=== PATIENT | male | born 1960 | race African-American/Black ===

== ENCOUNTER 2017-02-05 20:49 | Inpatient (IN) | payer SELFPAY ==
[2017-02-05] MEDS ORDERED: Water For Inject, Bacteriostat 30 ML ONE (21:10)
[2017-02-05] MEDS ORDERED: methylPREDNISolone Sod Succ/PF 125 MG/2 ML VIAL ONE (21:10)
[2017-02-05] MEDS ORDERED: Azithromycin 500 MG VIAL ONE (21:40)
[2017-02-05] MEDS ORDERED: Ondansetron ODT 4 MG TAB SL PRN (22:53)
[2017-02-05] MEDS ORDERED: Ondansetron HCl/PF 4 MG/2 ML Vial IVP PRN (22:53)
[2017-02-05 23:10] VITALS: BMI 23.5
[2017-02-06] MEDS ORDERED: Acetaminophen 500 MG TAB PO PRN (01:24)
[2017-02-06] MEDS ORDERED: cloNIDine HCl 0.1 MG TAB PO PRN (01:24)
[2017-02-06] MEDS ORDERED: Benzonatate 100 MG CAP PO PRN (01:24)
[2017-02-06] MEDS ORDERED: Ondansetron ODT 4 MG TAB PO PRN (01:24)
[2017-02-06] MEDS ORDERED: Ondansetron HCl/PF 4 MG/2 ML Vial IVP PRN (01:24)
[2017-02-06] MEDS: Guaifenesin DM 100-10/5 ML UDCUP PO PRN ×2 (02:14→17:57)
--- NOTE | 2017-02-06 03:01 | HP ---
DATE OF ADMISSION: 02/05/2017 PRIMARY CARE PHYSICIAN: Daphnie Hsu. CHIEF COMPLAINT: Cough and fever. HISTORY OF PRESENT ILLNESS: This is a 56-year-old -[place] male, who presented to [facility] in transfer from [place] [facility] after complaints of increased cough, congestion, chest pain and shortness of breath. The patient states that his symptoms have la sted over the last several days with increasing cough with associated bilateral chest pain. The pat ient states that the cough is mainly nonproductive, but has noted subjective fever. The patient sta marichuy the cough has persisted and worsened, and is not amenable to [id number] remedies. The pat ient denied any recent trauma or injury or known sick contacts. The patient also admits to [facility] ed nausea and vomiting with the coughing episodes. Patient does admit to smoking up to a pack of ci garettes daily. The patient presented to [facility] in [place] undergo ing general evaluation including chest imaging showing a left lower lobe infiltrate with associated white blood cell count of 20.6. The patient was treated for community-acquired pneumonia with IV az ithromycin as well as bronchodilator therapy with DuoNebs and Solu-Medrol. Patient also received 2 liters of normal saline and was transferred to [facility] for further evaluat ion. PAST MEDICAL HISTORY: 1. Tobacco abuse. 2. Polysubstance abuse including marijuana and cocaine. 3. History of pulmonary contusion with a small pneumothorax status post blunt chest trauma after fa ll. 4. Status post right wrist fracture with open reduction internal fixation. 5. Status post medial wall, right orbital fracture status post fall. 6. Alcohol use. PAST SURGICAL HISTORY: 1. Status post open reduction internal fixation of right distal radius fracture. 2. Status post back surgery. CURRENT MEDICATIONS: None. ALLERGIES: No known drug allergies. FAMILY HISTORY: Positive for hypertension. SOCIAL HISTORY: Patient admits to the use of cocaine and marijuana. The patient smokes up to a pac k of cigarettes daily. Positive alcohol use, 2-3 drinks per day. Resides in [place], [place]. Cur rently, unemployed. REVIEW OF SYSTEMS: The following complete review of systems was negative, unless otherwise mentione d in the HPI or below: Constitutional: Weight loss or gain, ability to conduct usual activities. Skin: Rash, itching. Eyes: Double vision, pain. ENT/Mouth: Nose bleeding, neck stiffness, pain, tenderness. Cardiovascular: Palpitations, dyspnea on exertion, orthopnea. Respiratory: Shortnes s of breath, wheezing, cough, hemoptysis, fever or night sweats. Gastrointestinal: Poor appetite, abdominal pain, heartburn, nausea, vomiting, constipation, or diarrhea. Genitourinary: Urgency, fr equency, dysuria, nocturia. Musculoskeletal: Pain, swelling. Neurologic/Psychiatric: Anxiety, de pression. Allergy/Immunologic: Skin rash, bleeding tendency. PHYSICAL EXAMINATION: VITAL SIGNS: On admission, blood pressure 118/70, pulse 98, respiratory rate 20, temperature 98.7 degrees Fahrenheit, O2 saturation 98% on 2 liters per minute by nasal cannula. GENERAL APPEARANCE: This is a 56-year-old -Dutch male, alert and oriented x3, pleasant, c onversant, in no acute distress. HEENT: Pupils are equal, round, and reactive to light and accommodation. Extraocular muscles are i ntact. No scleral icterus, no conjunctival injection. Nares patent. OP is clear. Teeth in fair r epair. NECK: Supple, no cervical adenopathy, no thyromegaly, no carotid bruits, no JVD appreciated. Cervi robert spine with full active and passive range of motion. CHEST: Diminished breath sounds in the bases bilaterally. CARDIOVASCULAR: S1, S2, without noted murmur. ABDOMEN: Flat, soft, nontender, nondistended. Bowel sounds are positive in all four quadrants. Th ere is no hepatosplenomegaly, no abdominal bruits, no rebound or guarding appreciated. EXTREMITIES: Warm and dry with fair turgor. No clubbing, cyanosis, or asymmetric edema appreciated . Pulses palpable distally at the dorsalis pedis, posterior tibial, and popliteal arteries bilatera lly. Capillary refill less than 2 seconds. NEUROLOGIC: Cranial nerves II through XII are grossly intact. No focal or lateralizing signs appre ciated. EKG dated 02/05/2017 by my interpretation, shows a sinus mechanism with rates in the 90s. Normal R- wave progression noted in the precordial leads. Right axis deviation. No acute ST-T wave changes a ppreciated. LABORATORY DATA: Unavailable. CT of the chest per verbal report showed left lower lobe infiltrate. ASSESSMENT AND PLAN: 1. Community-acquired pneumonia with left lower lobe involvement likely gram-positive cocci. We wi ll continue Levaquin 750 mg IV q.24 hours. Continue DuoNebs 3 mL nebulized q.4 hours, antitussive a gents with Tessalon Perles and Robitussin-DM. Continue oxygen supplementation to maintain O2 satura tions greater than or equal to 90%. Pneumovax prior to discharge. 2. Tobacco abuse. We will offer smoking cessation resources prior to discharge. Consider nicotine patch. 3. Polysubstance use. Continue supportive measures. We will offer resources for drug rehabilitati on on discharge. 4. Prophylaxis. Sequential compression devices while in bed. Pepcid 20 mg p.o. b.i.d. Pneumovax prior to discharge. 5. Code status is FULL. Surrogate medical decision maker is the patient's mother.
[2017-02-06 05:24] LABS: Band 10 % (5-11); Hematocrit 44.9 % (42.0-52.0); Mean Platelet Volume 9.2 fL (7.4-10.4); Neutrophil 83 % (42-75); Red Blood Cell (RBC) Count 4.68 mill/uL (4.70-6.10); White Blood Cell (WBC) Count 19.8 thou/uL (4.8-10.8)
[2017-02-06 05:31] LABS: Anion Gap 12 mmol/L (10-20); BUN (Urea Nitrogen) 18 mg/dL (8.4-25.7); Calc. Creatinine Clearance 65 mL/min (70-130); Carbon Dioxide 25 mmol/L (22-29); Chloride 99 mmol/L (98-107); Estimated GFR-MDRD 74
[2017-02-06] MEDS: Famotidine 20 MG TAB PO SCH ×2 (08:43→20:05)
--- NOTE | 2017-02-06 11:04 | PDOC.PN ---
- Subjective Encounter Start Date: 02/06/17 Encounter Start Time: 11:01 Mr. Quiroz is feeling a little better. He stil has some cough, and some chest pain with coughing. He also notes some dyspnea. - Objective Resuscitation Status: Resuscitation Status FULL:Full Resuscitation MAR Reviewed: Yes Vital Signs & Weight: Vital Signs (12 hours) Temp Pulse Resp BP Pulse Ox 02/06/17 07:55 98.2 F 68 18 118/74 97 02/06/17 07:40 98.2 F 75 16 97 02/06/17 07:34 99 02/06/17 07:32 75 16 99 02/06/17 04:00 97.6 F 69 16 127/66 93 L 02/06/17 02:47 71 16 97 02/06/17 01:24 97 Weight Weight 150 lb 3.2 oz I&O: 02/05/17 02/06/17 02/07/17 06:59 06:59 06:59 Intake Total 390 240 Balance 390 240 Result Diagrams: 02/06/17 04:06 02/06/17 04:06 Phys Exam - Physical Examination HEENT: PERRLA Respiratory: no wheezing, no rales, no rhonchi, clear to auscultation bilateral Cardiovascular: RRR, no significant murmur, no rub Gastrointestinal: soft, non-tender, positive bowel sounds Musculoskeletal: no edema Dx/Plan (1) Community acquired pneumonia Code(s): J18.9 - PNEUMONIA, UNSPECIFIED ORGANISM Status: Acute (2) Tobacco abuse Code(s): Z72.0 - TOBACCO USE Status: Acute - Plan * Pneumonia- will continue Levaquin * Tobacco abuse- discussed smoking cessation in detail * Will discontinue Telemetry * Likely home tomorrow, recommend Outpatient PFT's and routine health maintenance.
[2017-02-07] MEDS: Phenergan/Codeine 10-6.25mg/5ml UDCUP PO PRN (01:15)
[2017-02-07] MEDS: Famotidine 20 MG TAB PO SCH ×2 (08:00→22:32)
[2017-02-07 08:35] LABS: #Basophils 0.1 thou/uL (0.0-0.2); #Lymphocytes 2.2 thou/uL (1.20-3.40); #Monocytes 1.2 thou/uL (0.11-0.59); #Neutrophils 16.4 thou/uL (1.40-6.50); %Basophils 0.5 % (0.0-1.0); %Eosinophils 0.1 % (0.0-10.0); %Lymphocytes 10.9 % (21.0-51.0); %Monocytes 5.8 % (0.0-10.0); Hematocrit 43.5 % (42.0-52.0); Mean Platelet Volume 7.8 fL (7.4-10.4); Red Blood Cell (RBC) Count 4.52 mill/uL (4.70-6.10); White Blood Cell (WBC) Count 19.9 thou/uL (4.8-10.8)
[2017-02-07 08:59] LABS: Anion Gap 14 mmol/L (10-20); BUN (Urea Nitrogen) 17 mg/dL (8.4-25.7); Calc. Creatinine Clearance 70 mL/min (70-130); Calcium 8.9 mg/dL (7.8-10.44); Carbon Dioxide 24 mmol/L (22-29); Chloride 103 mmol/L (98-107); Estimated GFR-MDRD 80
--- NOTE | 2017-02-07 12:03 | RAD ---
CHEST 2 VIEWS: Date: 02/07/17 COMPARISON: 03/30/11. HISTORY: Evaluate for left lower lobe pneumonia. FINDINGS: There is an area of new asymmetric patchy opacity in the left perihilar region/mid left lung zone. T he lungs are hyperinflated and there are increased linear interstitial densities, evidence of underl esther emphysematous change. IMPRESSION: Chronic interstitial opacity with pulmonary hyperinflation. Question history of COPD. Superimposed h azy density is noted in the left perihilar region and the mid left lung zone suggesting infectious p neumonitis or aspiration. Follow-up following treatment advised to document resolution. POS: FELIBERTO
--- NOTE | 2017-02-07 13:30 | PDOC.PN ---
- Subjective Encounter Start Date: 02/07/17 Encounter Start Time: 10:20 Subjective: has dry cough and unable to bring up sputum -: no sob - Objective Resuscitation Status: Resuscitation Status FULL:Full Resuscitation MAR Reviewed: Yes Vital Signs & Weight: Vital Signs (12 hours) Temp Pulse Resp BP Pulse Ox 02/07/17 10:59 89 16 98 02/07/17 08:00 98.7 F 89 16 97 02/07/17 07:50 98.7 F 89 16 129/77 98 02/07/17 06:42 87 16 97 02/07/17 05:15 98.2 F 87 16 114/67 97 02/07/17 02:18 77 16 98 02/07/17 01:35 98.6 F 80 18 118/70 96 Weight Weight 150 lb 3.2 oz I&O: 02/06/17 02/07/17 02/08/17 06:59 06:59 06:59 Intake Total 390 960 480 Output Total 350 Balance 390 610 480 Result Diagrams: 02/07/17 08:24 02/07/17 08:24 Phys Exam - Physical Examination HEENT: PERRLA, moist MMs Neck: no JVD, supple Respiratory: no wheezing, no rales rhonchi++ Cardiovascular: RRR, no significant murmur Gastrointestinal: soft, non-tender, positive bowel sounds Musculoskeletal: no edema, pulses present Neurological: non-focal, moves all 4 limbs Psychiatric: A&O x 3 Dx/Plan (1) Community acquired pneumonia Code(s): J18.9 - PNEUMONIA, UNSPECIFIED ORGANISM Status: Acute Qualifiers: Laterality: left (2) COPD exacerbation Code(s): J44.1 - CHRONIC OBSTRUCTIVE PULMONARY DISEASE W (ACUTE) EXACERBATION Status: Acute (3) Substance abuse Code(s): F19.10 - OTHER PSYCHOACTIVE SUBSTANCE ABUSE, UNCOMPLICATED Status: Acute (4) Tobacco abuse Code(s): Z72.0 - TOBACCO USE Status: Acute (5) DM type 2 (diabetes mellitus, type 2) Status: Acute Qualifiers: Diabetes mellitus complication status: with unspecified complications Diabetes mellitus intermediate insulin use: without intermediate use Qualified Code( s): E11.8 - Type 2 diabetes mellitus with unspecified complications Comment: new onset - Plan is on levaquin, wbc still around 19 -: gentle iv hydration -: duonebs, small dose of steroids -: diabetic education, will cover with mild scale -: dc plan when wbc starts to trend down * . Review of Systems - Medications/Allergies Allergies/Adverse Reactions: Allergies Allergy/AdvReac Type Severity Reaction Status Date / Time No Known Drug Allergies Allergy Verified 02/05/17 23:07 Medications: Current Medications Acetaminophen (Tylenol) 1,000 mg PO Q6H PRN PRN Reason: Headache/Fever or Mild Pain Albuterol/Ipratropium (Duoneb) 3 ml NEB [id number] [facility] Last Admin: 02/07/17 10:59 Dose: 3 ml Benzonatate (Tessalon) 200 mg PO Q6H PRN PRN Reason: Cough Last Admin: 02/06/17 08:48 Dose: 200 mg Clonidine HCl (Catapres) 0.1 mg PO Q4H PRN PRN Reason: Systolic BP > 180 Famotidine (Pepcid) 20 mg PO BID [facility] Last Admin: 02/07/17 08:00 Dose: 20 mg Guaifenesin/Dextromethorphan (Robitussin Dm) 15 ml PO Q4H PRN PRN Reason: Cough Last Admin: 02/06/17 17:57 Dose: 15 ml Hydralazine HCl (Apresoline) 10 mg SLOW IVP Q4H PRN PRN Reason: Systolic BP > 180 Levofloxacin 750 mg/ Device 150 mls @ 100 mls/hr IVPB Q24HR [facility] Last Admin: 02/07/17 01:06 Dose: 150 mls Ondansetron HCl (Zofran Odt) 4 mg PO Q6H PRN PRN Reason: Nausea/Vomiting Ondansetron HCl (Zofran) 4 mg IVP Q6H PRN PRN Reason: Nausea/Vomiting Promethazine HCl/Codeine (Phenergan/Codeine Syrup) 5 ml PO Q4H PRN PRN Reason: Cough Last Admin: 02/07/17 01:15 Dose: 5 ml
[2017-02-07] MEDS: Sodium Chloride 0.9% 1,000 ML IV SCH (13:58)
[2017-02-07] MEDS: guaiFENesin ER 600 MG TAB PO SCH (22:32)
[2017-02-08] MEDS: Sodium Chloride 0.9% 1,000 ML IV SCH ×3 (02:05→21:16)
[2017-02-08 06:20] LABS: Anion Gap 11 mmol/L (10-20); BUN (Urea Nitrogen) 14 mg/dL (8.4-25.7); Calc. Creatinine Clearance 85 mL/min (70-130); Calcium 9.2 mg/dL (7.8-10.44); Carbon Dioxide 26 mmol/L (22-29); Chloride 103 mmol/L (98-107); Estimated GFR-MDRD Greater than 90
[2017-02-08 06:45] LABS: Band 1 % (5-11); Hematocrit 45.5 % (42.0-52.0); Mean Platelet Volume 8.4 fL (7.4-10.4); Neutrophil 85 % (42-75); Red Blood Cell (RBC) Count 4.73 mill/uL (4.70-6.10); White Blood Cell (WBC) Count 12.6 thou/uL (4.8-10.8)
[2017-02-08] MEDS: guaiFENesin ER 600 MG TAB PO SCH ×2 (08:03→21:13)
[2017-02-08] MEDS: Famotidine 20 MG TAB PO SCH ×2 (08:03→21:13)
--- NOTE | 2017-02-08 11:31 | PDOC.PN ---
- Subjective Encounter Start Date: 02/08/17 Encounter Start Time: 10:40 Subjective: is able to bring up his sputum now -: no sob - Objective Resuscitation Status: Resuscitation Status FULL:Full Resuscitation MAR Reviewed: Yes Vital Signs & Weight: Vital Signs (12 hours) Temp Pulse Resp BP Pulse Ox 02/08/17 10:42 98 16 97 02/08/17 08:00 98.3 F 95 22 H 126/66 96 02/08/17 06:31 85 16 96 02/08/17 02:50 88 16 95 Weight Weight 150 lb 3.2 oz I&O: 02/07/17 02/08/17 02/09/17 06:59 06:59 06:59 Intake Total 960 720 360 Output Total 350 Balance 610 720 360 Result Diagrams: 02/08/17 04:28 02/08/17 04:28 Phys Exam - Physical Examination HEENT: PERRLA, moist MMs Neck: no JVD, supple Respiratory: no wheezing, no rales rhonchi+ Cardiovascular: RRR, no significant murmur Gastrointestinal: soft, non-tender, positive bowel sounds Musculoskeletal: no edema, pulses present Neurological: non-focal, moves all 4 limbs Psychiatric: A&O x 3 Dx/Plan (1) Community acquired pneumonia Code(s): J18.9 - PNEUMONIA, UNSPECIFIED ORGANISM Status: Acute Qualifiers: Laterality: left (2) COPD exacerbation Code(s): J44.1 - CHRONIC OBSTRUCTIVE PULMONARY DISEASE W (ACUTE) EXACERBATION Status: Acute (3) Substance abuse Code(s): F19.10 - OTHER PSYCHOACTIVE SUBSTANCE ABUSE, UNCOMPLICATED Status: Acute (4) Tobacco abuse Code(s): Z72.0 - TOBACCO USE Status: Acute (5) DM type 2 (diabetes mellitus, type 2) Status: Acute Qualifiers: Diabetes mellitus complication status: with unspecified complications Diabetes mellitus adjunct faculty for medical terminology insulin use: without shelter use Qualified Code( s): E11.8 - Type 2 diabetes mellitus with unspecified complications Comment: new onset - Plan wbc down to 12 from 19 -: dc plan in am on oral levaq and alb inhaler -: steroids can be dc'd on discharge -: counselled reg substance abuse and smoking cessation -: new onset dm/glucose intolerance to steroids for diet control now * . Review of Systems - Medications/Allergies Allergies/Adverse Reactions: Allergies Allergy/AdvReac Type Severity Reaction Status Date / Time No Known Drug Allergies Allergy Verified 02/05/17 23:07 Medications: Current Medications Acetaminophen (Tylenol) 1,000 mg PO Q6H PRN PRN Reason: Headache/Fever or Mild Pain Albuterol/Ipratropium (Duoneb) 3 ml NEB [id number] [facility] Last Admin: 02/08/17 10:42 Dose: 3 ml Benzonatate (Tessalon) 200 mg PO Q6H PRN PRN Reason: Cough Last Admin: 02/06/17 08:48 Dose: 200 mg Clonidine HCl (Catapres) 0.1 mg PO Q4H PRN PRN Reason: Systolic BP > 180 Famotidine (Pepcid) 20 mg PO BID [facility] Last Admin: 02/08/17 08:03 Dose: 20 mg Guaifenesin (Mucinex) 600 mg PO Q12HR [facility] Last Admin: 02/08/17 08:03 Dose: 600 mg Guaifenesin/Dextromethorphan (Robitussin Dm) 15 ml PO Q4H PRN PRN Reason: Cough Last Admin: 02/06/17 17:57 Dose: 15 ml Hydralazine HCl (Apresoline) 10 mg SLOW IVP Q4H PRN PRN Reason: Systolic BP > 180 Levofloxacin 750 mg/ Device 150 mls @ 100 mls/hr IVPB Q24HR [facility] Last Admin: 02/08/17 02:04 Dose: 150 mls Sodium Chloride (Normal Saline 0.9%) 1,000 mls @ 100 mls/hr IV .Q10H [facility] Last Admin: 02/08/17 08:06 Dose: 1,000 mls Methylprednisolone Sodium Succinate (Solu-Medrol) 20 mg IVP Q8HR [facility] Last Admin: 02/08/17 06:27 Dose: 20 mg Ondansetron HCl (Zofran Odt) 4 mg PO Q6H PRN PRN Reason: Nausea/Vomiting Ondansetron HCl (Zofran) 4 mg IVP Q6H PRN PRN Reason: Nausea/Vomiting Promethazine HCl/Codeine (Phenergan/Codeine Syrup) 5 ml PO Q4H PRN PRN Reason: Cough Last Admin: 02/07/17 01:15 Dose: 5 ml
[2017-02-08] MEDS: Phenergan/Codeine 10-6.25mg/5ml UDCUP PO PRN (21:37)
[2017-02-09] MEDS: Sodium Chloride 0.9% 1,000 ML IV SCH (05:09)
[2017-02-09 06:21] LABS: Band 1 % (5-11); Hematocrit 44.6 % (42.0-52.0); Mean Platelet Volume 8.4 fL (7.4-10.4); Neutrophil 80 % (42-75); Reactive Lymphocytes 1 % (0-10); Red Blood Cell (RBC) Count 4.64 mill/uL (4.70-6.10); White Blood Cell (WBC) Count 14.2 thou/uL (4.8-10.8)
[2017-02-09 06:27] LABS: Anion Gap 11 mmol/L (10-20); BUN (Urea Nitrogen) 12 mg/dL (8.4-25.7); Calc. Creatinine Clearance 85 mL/min (70-130); Calcium 9.4 mg/dL (7.8-10.44); Carbon Dioxide 27 mmol/L (22-29); Chloride 103 mmol/L (98-107); Estimated GFR-MDRD Greater than 90
[2017-02-09 08:05] VITALS: BP 161/93; TEMP 98.4
[2017-02-09] MEDS: Famotidine 20 MG TAB PO SCH (10:39)
[2017-02-09] MEDS: guaiFENesin ER 600 MG TAB PO SCH (10:39)
--- NOTE | 2017-02-09 13:11 | DIS ---
DATE OF ADMISSION: 02/05/2017 DATE OF DISCHARGE: 02/09/2017 PRIMARY CARE PHYSICIAN: [facility] call admission. DISCHARGE DISPOSITION: Home. PRIMARY DISCHARGE DIAGNOSES: Community-acquired pneumonia and chronic obstructive pulmonary disease exacerbation. SECONDARY DISCHARGE DIAGNOSES: Diabetes type 2, history of substance abuse, tobacco abuse disorder. PRIMARY PROCEDURE/OPERATION: None. RADIOLOGICAL INVESTIGATION: Chest x-ray showed findings suggestive of infectious pneumonitis predominantly on left perihilar and left mid lung zone. SIGNIFICANT LABORATORY DATA: WBC 14.2, hemoglobin 13.9, and platelets 315. Sodium 137, potassium 4.1, BUN 12, creatinine 0.94, and calcium 9.4. DISCHARGE MEDICATIONS: Levaquin 750 mg p.o. daily, Dulera two puffs inhalation b.i.d., Ventolin HFA 2 puffs q.6 hourly p.r.n., Mucinex 600 mg twice daily for 7 days, Levaquin is also for 7 days. CONTRAINDICATIONS: None. CODE STATUS: FULL CODE. INPATIENT SKILL TRAINING PROGRAM COORDINATOR: None. ALLERGIES: No known drug allergy. DISCHARGE PLAN: Post hospital, the patient will follow up with primary care physician and upon followup visit with primary care physician, the patient is advised to repeat chest x-ray. HOSPITAL COURSE: A 56-year-old -[place] male who was admitted by Dr. Rosas. Please see his H\T\P for further details. The patient was admitted by him and at that time, the patient was having upper respiratory and lower respiratory symptoms. He was diagnosed with community-acquired pneumonia. He was admitted to medical floor and he was treated with IV levofloxacin therapy. He was given counseling while in hospital to avoid tobacco abuse. He also has underlying chronic obstructive pulmonary disease flareup and that is why we started Dulera inhalation and Ventolin inhaler upon discharge. Patient had significant clinical improvement. He is on room air. On discharge , we changed to p.o. Levaquin therapy. His WBC count was elevated because of steroid, but he did not require any steroid. Upon discharge, we only prescribed Dulera inhaler. The patient is seen and examined at bedside today. PHYSICAL EXAMINATION: VITAL SIGNS: Currently, temperature 98.4, pulse 84, respiratory rate 16, saturation 97%, blood pressure 161/93. Weight 150 pounds. GENERAL: The patient is currently alert, awake, no acute distress. HEAD: Normocephalic, atraumatic. LUNGS: Clear. CARDIAC: S1 and S2 regular without any murmur. ABDOMEN: Soft and benign. EXTREMITIES: No edema. NEUROLOGIC: Nonfocal examination. Overall, the patient is medically stable for discharge. Total time spent on discharge day more than 30 minutes. MTDD
== END 2017-02-09 12:05 | disposition home or self-care (01) | DRG 190 ==
LOC: ERS 20:49 → 2NO 21:19 → T4-A 02-06 15:28
PROVIDERS: ADMIT Family Medicine; ATTEND Family Medicine
DX: J44.0 Chronic obstructive pulmonary disease with (acute) lower respiratory infection (principal); J18.9 Pneumonia, unspecified organism; J44.1 Chronic obstructive pulmonary disease with (acute) exacerbation; E11.9 Type 2 diabetes mellitus without complications; F14.10 Cocaine abuse, uncomplicated; F19.10 Other psychoactive substance abuse, uncomplicated; F17.210 Nicotine dependence, cigarettes, uncomplicated; Z87.81 Personal history of (healed) traumatic fracture
CPT/HCPCS: 36415; 71020; 80048; 85007; 85025; 85027; 93005; 94640; 96365; 96375; J0456; J1956; J2920; J2930; J7620

== ENCOUNTER 2018-10-13 15:54 | Observation (INO) | payer SELFPAY ==
[2018-10-13 16:30] LABS: #Basophils 0.1 thou/uL (0.0-0.2); #Eosinphils 0.2 thou/uL (0.0-0.7); #Lymphocytes 2.4 thou/uL (1.20-3.40); #Monocytes 0.9 thou/uL (0.11-0.59); #Neutrophils 2.6 thou/uL (1.40-6.50); %Basophils 1.1 % (0.0-1.0); %Eosinophils 3.4 % (0.0-10.0); %Lymphocytes 39.2 % (21.0-51.0); %Neutrophils 42.3 % (42.0-75.0); Hemoglobin 14.6 g/dL (14.0-18.0); Mean Corpuscular HGB CONC 33.3 g/dL (32.0-36.0); Mean Corpuscular Hemoglobin 30.4 pg (27.0-31.0); Mean Corpuscular Volume 91.3 fL (78.0-98.0); Mean Platelet Volume 8.8 fL (7.4-10.4); Platelet Count 221 thou/uL (130-400); RBC Distribution Width 14.2 % (11.5-14.5); White Blood Cell (WBC) Count 6.1 thou/uL (4.8-10.8)
--- NOTE | 2018-10-13 17:08 | RAD ---
SINGLE VIEW OF THE CHEST: 10/13/18 COMPARISON: 09/09/18 HISTORY: Chest pain and dizziness. FINDINGS: Single view of the chest shows a normal sized cardiomediastinal silhouette. There is no evidence of c onsolidation, mass, or pleural effusion. The bones are unremarkable. IMPRESSION: No evidence of acute cardiopulmonary disease. POS: [facility]
[2018-10-13 17:22] LABS: ALT (SGPT) 89 U/L (8-55); AST (SGOT) 114 U/L (5-34); Albumin 3.7 g/dL (3.5-5.0); Alkaline Phosphatase 91 U/L (40-150); Anion Gap 13 mmol/L (10-20); BUN (Urea Nitrogen) 12 mg/dL (8.4-25.7); Bilirubin, Total 0.4 mg/dL (0.2-1.2); Calc. Creatinine Clearance 0 mL/min (70-130); Calcium 9.1 mg/dL (7.8-10.44); Carbon Dioxide 27 mmol/L (22-29); Chloride 99 mmol/L (98-107); Estimated GFR-MDRD 69; Glucose 103 mg/dL (70-105); Potassium 3.7 mmol/L (3.5-5.1); Protein, Total 7.7 g/dL (6.0-8.3); Sodium 135 mmol/L (136-145)
[2018-10-13 19:54] LABS: Troponin I Less than 0.010 ng/mL (< 0.028)
[2018-10-14 10:32] LABS: Amphetamine Not Detected (NotDetected); Barbiturates Screen Not Detected (NotDetected); Benzodiazepine Screen Not Detected (NotDetected); Cocaine Metabolite Screen Not Detected (NotDetected); Medtox Control Line Valid? VALID (VALID); Medtox Reader # READER 1; Methadone Not Detected (NotDetected); Methamphetamine Not Detected (NotDetected); Opiate Screen Not Detected (NotDetected); Oxycodone Screen Not Detected (NotDetected); Phencyclidine (PCP) Not Detected (NotDetected); THC/Cannabinoid Screen Not Detected (NotDetected); Tricyclic Screen Not Detected (NotDetected)
--- NOTE | 2018-10-14 11:31 | NM ---
Pharmacological stress myocardial perfusion study HISTORY: Chest pain and shortness of breath. History of smoking. Radiopharmaceuticals: 31.5 mCi technetium 99m sestamibi, IV at stress and 10.6 mCi technetium 99m sestamibi, IV at rest. Views obtained: 180 degrees SPECT FINDINGS: No reversible defects are seen between the stress and resting acquisitions. Quantitative analysis als o shows no significant reversible defect. The gated images demonstrate normal ventricular wall motion and wall thickening. The left ventricular ejection fraction is 50%. IMPRESSION: 1. Normal myocardial perfusion study without evidence of a reversible defect seen to suggest ischemia . 2. LVEF of 50%.
[2018-10-14 16:08] LABS: Troponin I Less than 0.010 ng/mL (< 0.028)
[2018-10-14 16:12] VITALS: BP 120/71; TEMP 98.7
[2018-10-14] MEDS ORDERED: Regadenoson 0.4 MG/5 ML SYRINGE ONE (16:36)
--- NOTE | 2018-10-14 19:37 | HP ---
PRIMARY CARE DOCTOR: For this patient is not reported. CODE STATUS: Full code. TIME OF EVALUATION: 8:00 p.m. on 10/13/2018. CHIEF COMPLAINT: Chest pain. This chart is being dictated after hours due to SEA IT issues. HISTORY OF PRESENT ILLNESS: This is a 58-year-old male patient with past medical history of COPD, came to the hospital after having chest pain that has been present for the past 5-6 days with no clear triggers, no alleviating factors, associated with left arm numbness. The intensity was around 6/10, with sudden onset. REVIEW OF SYSTEMS: CONSTITUTIONAL: No fever, chills, or generalized weakness. RESPIRATORY: No cough, sputum production, or shortness of breath. CARDIOVASCULAR: The patient has chest pain as described in HPI. No palpitation. GASTROINTESTINAL: No nausea. No vomiting, diarrhea, or abdominal pain. RADIOTELEGRAPH OPERATOR: No dizziness, headache, or feeling lightheaded. GENITOURINARY: No burning urination. EXTREMITIES: No leg swelling. All other systems were reviewed and negative except for the findings mentioned above. PAST MEDICAL HISTORY: As reported in HPI. PAST SURGICAL HISTORY: Orthopedic surgery, back surgery, hand surgery, rib surgeries. left ear surgery, surgery in my hand as reported by the patient. PSYCHIATRIC HISTORY: No previous psych history. FAMILY HISTORY: Reviewed and non contributory to current presentation. SOCIAL HISTORY: The patient drinks everyday, more than 10 drinks per day. Use drugs, abuse cocaine, marijuana, smoke a pack of cigarettes per day. ALLERGIES: NO KNOWN DRUG ALLERGIES REPORTED TO MEDICATIONS. PHYSICAL EXAMINATION: VITAL SIGNS: On presentation, heart rate 120, oxygen saturation 95, blood pressure 130/73 with heart rate 95, respiratory rate was 29, temperature 98.4. Pain was 6/10 oxygen saturation was 93% on room air. GENERAL: The patient is alert, oriented, no acute distress. HEENT: Eyes normal conjunctivae. Moist oral mucosa. Anicteric. No JVD. RESPIRATORY: Bilateral air entry. No rales. No wheezes. Symmetric expansion. CARDIOVASCULAR: Normal rate, regular rhythm. No murmurs. No gallop. No edema. ABDOMEN: Soft. Normal bowel sounds. MUSCULOSKELETAL: Baseline range of motion and strength. No tenderness. SKIN: Warm, intact. No pallor. No rash. No redness. Capillary refill seems to be intact. NEURO: No evidence of any new focal weakness. Cranial nerves seems to be intact. PSYCH: The patient is in good mood. No anxiety. Optimal judgment. EKG was reviewed. The patient has sinus tachycardia at the rate of 104 with no other significant acute abnormalities. LABORATORY DATA: Labs were reviewed. The patient has a white count 6.1, hemoglobin 14.6, MCV 91.3, platelet count 221. Coagulation, D-dimer 0.4. Chemistry; sodium 135, potassium 3.7, chloride 99, carbon dioxide 27, anion gap 13, BUN 12, creatinine 1.69, GFR 69, glucose 103, calcium 9.1, total bilirubin 0.4, AST 114, ALT 89. Troponin was negative x2. Toxicology was negative. ASSESSMENT AND PLAN: The patient will be placed in the hospital with following medical problems. 1. Chest pain, rule out acute coronary syndrome. The patient has cardiac like chest pain. The patient has negative troponin. Toxicology is negative, so not likely due to any drug ingestion. We will do a stress test in the morning, follow recommendations, if positive, might need cardiology evaluation. 2. History of chronic obstructive pulmonary disease exacerbation. This is chronic, seems to be stable. No need for any acute intervention at this point. 3. Hyponatremia, sodium 135, this is mild, no need for any acute intervention. We will monitor and replace as needed. 4. Mild elevation in the LFTs, could be secondary to alcohol use, no need for any acute intervention. 5. Deep venous thrombosis prophylaxis. Job ID: [id number] MTDD
--- NOTE | 2018-10-16 17:10 | EKG ---
Test Reason : Blood Pressure : / mmHG Vent. Rate : 104 BPM Atrial Rate : 104 BPM P-R Int : 126 ms QRS Dur : 084 ms QT Int : 348 ms P-R-T Axes : 074 081 082 degrees QTc Int : 457 ms Sinus tachycardia Otherwise normal ECG Confirmed by JENIFER KIMBALL DO ([id number]), offline editor TIFFANY DEAN ([id number]) on 10/16/2018 5:10:08 PM Referred By: Confirmed By:JENIFER KIMBALL DO
== END 2018-10-14 16:26 | disposition home or self-care (01) ==
LOC: ERS 15:54 → 2SW 19:04
PROVIDERS: ADMIT Hospitalist; ATTEND Hospitalist
DX: R07.9 Chest pain, unspecified (principal); J44.9 Chronic obstructive pulmonary disease, unspecified; E87.1 Hypo-osmolality and hyponatremia; R94.5 Abnormal results of liver function studies; R00.0 Tachycardia, unspecified; F17.210 Nicotine dependence, cigarettes, uncomplicated; Z98.890 Other specified postprocedural states
CPT/HCPCS: 36415; 71045; 78452; 80053; 80306; 83690; 84484; 85025; 85379; 93005; 93017; A9500; G0378; J2785

== ENCOUNTER 2019-10-19 11:06 | Observation (INO) | payer OTHER, SELFPAY ==
--- NOTE | 2019-10-19 12:07 | CT ---
EXAM: CT brain without contrast HISTORY: Left arm weakness for 5 days COMPARISON: None TECHNIQUE: Multiple contiguous axial images were obtained and a CT of the brain without contrast. FINDINGS: There are scattered hypodensities in the subcortical and periventricular white matter consi stent with small vessel ischemic disease. There is no evidence of hydrocephalus, intracranial hemorrhage, or extra-axial fluid collection. The calvarium and overlying soft tissues are unremarkable. The visualized paranasal sinuses and masto id air cells are well aerated. IMPRESSION: No evidence of acute intracranial abnormality
--- NOTE | 2019-10-19 12:09 | RAD ---
EXAM: Single view of the chest HISTORY: Stabbing chest pain and difficulty breathing COMPARISON: 10/13/2018 FINDINGS: Single view of the chest shows a normal sized cardiomediastinal silhouette. There are bibas ilar opacities which likely represent infiltrates. The bones are unremarkable. IMPRESSION: Bilateral lower lobe infiltrates
[2019-10-19 12:10] LABS: #Eosinphils 0.3 thou/uL (0.0-0.7); #Lymphocytes 2.1 thou/uL (1.20-3.40); #Monocytes 0.7 thou/uL (0.11-0.59); #Neutrophils 2.3 thou/uL (1.40-6.50); %Basophils 0.9 % (0.0-1.0); %Eosinophils 5.6 % (0.0-10.0); %Lymphocytes 38.2 % (21.0-51.0); %Monocytes 13.4 % (0.0-10.0); %Neutrophils 41.9 % (42.0-75.0); Hemoglobin 16.3 g/dL (14.0-18.0); Mean Corpuscular HGB CONC 31.9 g/dL (32.0-36.0); Mean Corpuscular Hemoglobin 30.2 pg (27.0-31.0); Mean Corpuscular Volume 94.6 fL (78.0-98.0); Mean Platelet Volume 9.3 fL (7.4-10.4); Platelet Count 211 thou/uL (130-400); RBC Distribution Width 13.7 % (11.5-14.5); Red Blood Cell (RBC) Count 5.41 mill/uL (4.70-6.10); White Blood Cell (WBC) Count 5.4 thou/uL (4.8-10.8)
[2019-10-19 12:28] LABS: ALT (SGPT) 113 U/L (8-55); AST (SGOT) 112 U/L (5-34); Albumin 3.7 g/dL (3.5-5.0); Alkaline Phosphatase 72 U/L (40-110); Anion Gap 11 mmol/L (10-20); BUN (Urea Nitrogen) 9 mg/dL (8.4-25.7); Bilirubin, Total 0.4 mg/dL (0.2-1.2); CK (CPK) 72 U/L (30-200); Calc. Creatinine Clearance 0 mL/min (70-130); Calcium 9.2 mg/dL (7.8-10.44); Carbon Dioxide 30 mmol/L (22-29); Chloride 102 mmol/L (98-107); Estimated GFR-MDRD Greater than 90; Glucose 90 mg/dL (70-105); Protein, Total 8.7 g/dL (6.0-8.3); Sodium 138 mmol/L (136-145)
[2019-10-19] MEDS ORDERED: Aspirin Chewable 81 MG TAB ONE (13:23)
[2019-10-19] MEDS ORDERED: Acetaminophen 325 MG TAB PO PRN (15:07)
[2019-10-19 16:28] VITALS: BMI 20.9
[2019-10-19] MEDS ORDERED: Acetaminophen 500 MG TAB PO PRN (16:33)
[2019-10-19] MEDS ORDERED: hydrALAZINE 20 MG/ML VIAL SLOW IVP PRN (16:33)
[2019-10-19] MEDS ORDERED: Ondansetron PF 4 MG/2 ML Vial IVP PRN (16:33)
[2019-10-19] MEDS ORDERED: Ondansetron ODT 4 MG TAB PO PRN (16:33)
--- NOTE | 2019-10-19 18:33 | ULT ---
BILATERAL CAROTID DUPLEX ULTRASOUND: 09/18/19 HISTORY: TIA. Real time color Doppler evaluation of the right and left carotid system shows some minimal intimal th ickening bilaterally and some plaque formation at the origin of the right internal carotid. On the right side, peak systolic velocity of the common carotid artery were 63 cm/s, internal carotid velocity is 53 cm/s and external carotid velocities of 100 cm/s. On the left side, peak systolic velocity of the common carotid artery were 104 cm/s, internal carotid velocity is 56 cm/s and external carotid velocities of 77 cm/s. Vertebral flow is antegrade bilaterally. IMPRESSION: No evidence of hemodynamically significant stenosis at either internal carotid artery by NASCET crite ricik. POS: DIONNA
[2019-10-19 18:53] LABS: Troponin I 0.011 ng/mL (< 0.028)
[2019-10-19] MEDS ORDERED: Atorvastatin Calcium 40 MG TAB PO SCH (21:00)
--- NOTE | 2019-10-19 22:15 | HP ---
PRIMARY CARE PROVIDER: Debby Aaron MD CHIEF COMPLAINT: Left arm weakness. HISTORY OF PRESENT ILLNESS: This is a 59-year-old male, who presents to [facility] Emergency Department complaining of approximately 2-week history of persistent left-sided arm weakness with associated left lower extremity weakness. The patient denied any trauma injury fall and is right-hand dominant. The patient also admits to some central chest pressure and upper abdominal discomfort over the last several weeks. The patient states his arm feels heavy and uncoordinated at times, but is able to move it and do general chores around his home. The patient denied any fever, chills, travel history, or family members with similar symptoms. The patient states he did not take any specific medication or therapy for his symptoms. The patient admits to progressive shortness of breath due to COPD and persistent smoking. The patient states he intermittently uses inhalers, but denies any home oxygen use. The patient admits associated blurred vision. No dysarthria or difficulty swallowing. The patient denies any chronic aspirin use. In the emergency room, the patient underwent general evaluation including CT imaging of the brain showing no acute process. The patient received aspirin 324 mg and was referred to the Hospitalist Service for evaluation. PAST MEDICAL HISTORY: 1. Tobacco abuse ongoing. 2. Chronic obstructive pulmonary disease. 3. Alcohol use. PAST SURGICAL HISTORY: 1. Status post back surgery. 2. Status post wrist surgery. 3. Status post hand surgery. 4. Status post repair of laceration to the scalp. 5. Status post left ear repair. CURRENT MEDICATIONS: Reviewed. The patient is unsure of the name of his inhalers at home. ALLERGIES: NO KNOWN DRUG ALLERGIES. FAMILY HISTORY: Positive for hypertension and coronary artery disease. SOCIAL HISTORY: Resides in [place], [place]. Smokes up to a pack of cigarettes daily. Uses marijuana regularly. Drinks alcohol and beer up to five times per day. REVIEW OF SYSTEMS: CONSTITUTIONAL: Negative for weight loss or gain, ability to conduct usual activities. SKIN: Negative for rash, itching. EYES: Negative for double vision, pain. ENT/MOUTH: Negative for nose bleeding, neck stiffness, pain, tenderness. CARDIOVASCULAR: Negative for palpitations, dyspnea on exertion, orthopnea. RESPIRATORY: Negative for shortness of breath, wheezing, cough, hemoptysis, fever or night sweats. GASTROINTESTINAL: Negative for poor appetite, abdominal pain, heartburn, nausea, vomiting, constipation, or diarrhea. GENITOURINARY: Negative for urgency, frequency, dysuria, nocturia. MUSCULOSKELETAL: Negative for pain, swelling. NEUROLOGIC/PSYCHIATRIC: Negative for anxiety, depression. ALLERGY/IMMUNOLOGIC: Negative for skin rash, bleeding tendency. Otherwise negative except as stated per HPI. PHYSICAL EXAMINATION: VITAL SIGNS: Blood pressure 160/61, pulse 91, respiratory rate 20, temperature 98.2 degrees Fahrenheit, O2 saturation 98% on room air. GENERAL APPEARANCE: This is a 59-year-old male, alert and oriented x3, pleasant, responsive, in no acute distress. HEENT: Pupils are equal, round, reactive to light and accommodation. Extraocular muscles are intact. No scleral icterus. No conjunctival injection. Nares are patent. OP is clear. Teeth in poor repair. NECK: Supple. No cervical adenopathy. No thyromegaly. No carotid bruits. No JVD appreciated. Cervical spine with full active and passive range of motion. No meningeal signs noted. CHEST: Diminished breath sounds in the bases bilaterally. Occasional expiratory wheeze. CARDIOVASCULAR EXAM: S1-S2 with distant heart sounds. No murmur, rub, or gallop appreciated. ABDOMEN: Rounded, soft, nontender, and nondistended. Bowel sounds are positive in all 4 quadrants. There is no hepatosplenomegaly. No abdominal bruits. No rebound or guarding appreciated. EXTREMITIES: Warm and dry with fair turgor. No clubbing, cyanosis, or asymmetric edema appreciated. Pulses palpable distally at the dorsalis pedis, posterior tibial, and popliteal arteries bilaterally. Capillary refill less than 2 seconds. NEUROLOGIC: Cranial nerves 2 through 12 are grossly intact. Questionable left facial asymmetry. Speech intact. No dysarthria. Left upper extremity with 3/5 strength compared to the right upper extremity. Right-hand dominant. Left lower extremity 4/5 compared to the right lower extremity. Follows all commands appropriately. PERTINENT LABORATORY AND X-RAY FINDINGS: Sodium 138, potassium 5.0, chloride 102, CO2 of 30, BUN 9, creatinine 1.02, estimated GFR greater than 90, glucose 90, total bilirubin 0.4, AST 112, ALT 113, alkaline phosphatase 72. Troponin I negative x2. Albumin 3.7. CBC showed a white blood cell count of 5.4, hemoglobin 16, hematocrit 51, platelet count 211 with 42% neutrophils. Portable chest x-ray dated 10/19/2019, showed chronic changes in bilateral lung will. Hyperinflation consistent with COPD changes. CT of the brain without contrast dated 10/19/2019, showed no acute intracranial process. EKG dated 10/19/2019, by my interpretation shows sinus mechanism with heart rates in the 80s. Normal R-wave progression noted in the precordial leads. Normal axis. No acute ST-T wave changes appreciated. ASSESSMENT AND PLAN: 1. Transient ischemic attack versus cerebrovascular accident. The patient will be observed on the stroke unit. We will obtain MRI imaging of the brain to further define intracranial anatomy and rule out cerebrovascular accident. Check carotid Doppler study and 2D transthoracic echocardiogram. General stroke protocol. Continue aspirin 81 mg daily. Add Lipitor 40 mg p.o. at bedtime. Check fasting lipid profile in the a.m. 2. Chronic obstructive pulmonary disease. No evidence to suggest an acute exacerbation. Add Dulera 2 puffs b.i.d. in addition to DuoNeb q.4 hours. 3. Tobacco abuse. We will offer smoking cessation resources prior to discharge. 4. Elevated blood pressure. No formal diagnosis of hypertension. We will continue serial blood pressure monitoring. Likely, we will initiate antihypertensive regimen prior to discharge. P.r.n. hydralazine IV. 5. Marijuana abuse. We will offer cessation resources prior to discharge. 6. Prophylaxis. SCDs while in bed. Pepcid 20 mg p.o. b.i.d. 7. Code status is full. Surrogate medical decision maker is Beba Quiroz, mother. Job ID: [id number]
[2019-10-20 06:09] LABS: ALT (SGPT) 109 U/L (8-55); AST (SGOT) 126 U/L (5-34); Albumin 3.5 g/dL (3.5-5.0); Alkaline Phosphatase 70 U/L (40-110); Anion Gap 11 mmol/L (10-20); BUN (Urea Nitrogen) 9 mg/dL (8.4-25.7); Bilirubin, Total 0.7 mg/dL (0.2-1.2); Calc. Creatinine Clearance 74 mL/min (70-130); Calcium 9.2 mg/dL (7.8-10.44); Carbon Dioxide 29 mmol/L (22-29); Cardiac Risk 2.1 (Less than 4.5); Chloride 98 mmol/L (98-107); Cholesterol 177 mg/dl (< 200 Desired); Estimated GFR-MDRD Greater than 90; Globulin 4.2 g/dL (2.4-3.5); Glucose 95 mg/dL (70-105); HDL Cholesterol 85 mg/dL (>60 Neg Risk); LDL Cholesterol, Calculated 77 mg/dL; Potassium 3.9 mmol/L (3.5-5.1); Protein, Total 7.7 g/dL (6.0-8.3); Sodium 134 mmol/L (136-145); Triglycerides 74 mg/dL (Less than 150)
[2019-10-20] MEDS ORDERED: Aspirin 81 mg Enteric Coated Tablet PO SCH (09:00)
--- NOTE | 2019-10-20 09:33 | MRI ---
Exam: Brain MRI without contrast HISTORY: Transient ischemic attack. Left arm weakness. COMPARISON: None FINDINGS: Calvarial marrow signal intensity: Appropriate T1 signal Gradient echo sequence: No hemorrhage Brain parenchyma: No mass, mass effect or midline shift. Brain volume, age-appropriate. Cortical leon-white matter differentiation: Preserved Restricted diffusion: Central arterial flow voids are maintained. Absent restricted diffusion White matter signal intensities: T2, FLAIR white matter hyperintensities due to chronic small vessel ischemic changes Sinuses: Adequate aeration of the paranasal sinuses and mastoid air cells. Incidentals: T2 and FLAIR hyperintense lesion in the right parotid gland is incompletely evaluated IMPRESSION: 1. Absent restricted diffusion. No acute infarct 2. Incompletely evaluated right parotid gland lesion. Nonemergent MRI of the face/neck can be perform ed with and without contrast.
--- NOTE | 2019-10-20 12:11 | CON ---
NEUROLOGY CONSULTATION DATE OF CONSULTATION: 10/20/2019 REASON FOR CONSULTATION: Left-sided weakness. HISTORY OF PRESENT ILLNESS: Mr. Jamaal Quiroz is a 59-year-old male with a history significant for nicotine abuse, alcohol abuse, and COPD, presented to the emergency room with episodes of transient left upper and lower extremity weakness associated with numbness. According to the patient, this has been going on for the last 2 weeks with some pressure on the chest. His arm and leg feel heavy, and then he is unable to walk properly. The patient denies any nausea, vomiting, headache, chest pain, abdominal pain, or Vertigo associated with these episodes. He does have shortness of breath due to COPD and nicotine abuse. The patient denies difficulty in swallowing or problems with speech or loss of vision or blurred vision. In the emergency room, head CT was done, which did not reveal any acute intracranial process. He was given aspirin 324 mg and was transferred to the stroke floor for further evaluation. REVIEW OF SYSTEMS: All 14 systems were reviewed and were negative except the pertinent positives and negatives mentioned in the HPI. PAST MEDICAL HISTORY: Nicotine abuse, alcohol abuse, and COPD. PAST SURGICAL HISTORY: He had back, wrist, and hand surgeries; repair of laceration of the scalp; and left ear laceration repair. CURRENT MEDICATIONS: The patient uses inhalers at home, and he is unsure about the names. ALLERGIES: NO KNOWN DRUG ALLERGIES. FAMILY HISTORY: The family history is significant for hypertension and coronary artery disease. SOCIAL HISTORY: The patient lives in [place], [place]. He smokes a pack of cigarettes a day. He uses marijuana. History of alcohol and beer abuse up to 5 times per day. PHYSICAL EXAMINATION: VITAL SIGNS: Blood pressure 140/60, pulse 80, respiratory rate 18. CVS: Regular rate and rhythm. CHEST: Clear. ABDOMEN: Soft. NECK: No carotid bruit. NEUROLOGIC: Mental status; the patient is alert and oriented to person, place, and time. Recent and remote memory, intact. Speech is clear. Fund of knowledge is appropriate. Cranial nerves 2 through 12 intact. Motor; muscle tone and bulk are normal. Strength; 4+/5 in the left upper and lower extremities, 5/5 in the right upper and lower extremities. Sensory; decreased sensation to light touch and pinprick in the left upper and lower extremities, intact in the right upper and lower extremities. Cerebellar; finger-nose testing intact. Reflexes symmetric bilaterally. Gait deferred due to the patient's safety reasons. DATA REVIEWED: I reviewed the labs, which were significant for CO2 of 30, BUN 9 , and creatinine of 1.02. Chest x-ray shows chronic changes in the lungs due to COPD. CT scan of the head reviewed, which was negative for acute intracranial pathology, the differential diagnosis. ASSESSMENT AND PLAN: Mr. Jamaal Quiroz is consulted for episodes of transient left upper and lower extremity weakness associated with numbness. Since the last 2 weeks, he does have risk factors for stroke. Differential diagnosis is transient ischemic attack, however. Seizure seems to be rare, but cannot be completely ruled out because of the transient nature of the history of typical events. MRI of the brain reviewed, which was negative for acute intracranial pathology. Carotid Dopplers showed no evidence of hemodynamically significant stenosis at either internal carotid artery. 2D echo showed left ventricular ejection fraction 60% to 65%. No obvious intracardiac thrombi, masses, atrial septal defect, or patent foramen ovale. Neuro checks every 4 hours. Recommend EEG to evaluate for underlying cortical irritability. Continue aspirin and high-intensity statin for secondary stroke prevention. Strict control of the blood pressure and blood glucose. Check fasting lipid panel, hemoglobin A1c, and TSH. Telemetry. Counselled for smoking cessation. PT/OT/Speech. Continue home medications. Continue medical management per primary team. We will continue to follow. Thank you for the consult. Job ID: [id number] MTDD
[2019-10-20 15:27] VITALS: BP 137/91; TEMP 98
--- NOTE | 2019-10-21 00:06 | DIS ---
DATE OF ADMISSION: 10/19/2019 DATE OF DISCHARGE: 10/20/2019 DISCHARGE DIAGNOSES: 1. Left upper extremity weakness, likely due to cervical disk disease. 2. Chronic obstructive pulmonary disease, stable. 3. Elevated blood pressure. 4. Tobacco abuse. 5. Marijuana abuse. 6. Right parotid gland lesion. CONSULTATIONS: Dr. Parmar with Neurology Service. PERTINENT LABORATORY AND X-RAY FINDINGS: AST ranged between 112 to 126, ALT ranged between 109 to 113. Troponin I negative x3. Total cholesterol 177, triglyceride 74, HDL 85, LDL 77. CBC within normal limits. Portable chest x-ray dated 10/19/2019, showed changes consistent with COPD in the upper lobes. CT of the brain without contrast dated 10/19/2019, showed no acute intracranial process. Carotid Doppler study dated 10/19/2019, showed no hemodynamically significant stenosis. MRI of the brain dated 10/20/2019, showed no acute intracranial process. Incompletely evaluated right parotid gland lesion. Recommend outpatient followup. 2D transthoracic echocardiogram dated 10/20/2019, showed ejection fraction of 60% to 65%. Diastolic dysfunction noted. HOSPITAL COURSE: The patient was observed on the Stroke Unit after initially presenting with persistent left upper extremity weakness and concern for transient ischemic attack versus CVA. The patient underwent a neuro imaging including CT and MRI modalities showing no acute intracranial process. The patient's symptoms likely contributed from cervical disk disease or peripheral neuropathy. The patient was evaluated by the Neurology Service with recommendations for general medical management and risk factor modification. The patient was noted with an incompletely evaluated right parotid lesion with recommendations for outpatient followup and monitoring. Overall, the patient did remain clinically stable during the hospital course, tolerating regular oral intake. I have examined the patient at the time of discharge and discussed followup instructions. The patient verbalized understanding and agreement ready for discharge, 10/20/2019. DISCHARGE MEDICATIONS: 1. Enteric-coated aspirin 81 mg p.o. daily. 2. Dulera 200/5 mcg two puffs inhaled b.i.d. 3. Ventolin HFA 2 puffs inhaled q.6 hours p.r.n. FOLLOWUP: The patient may follow up with Dr. Aaron within 7 days of discharge. CONDITION ON DISCHARGE: Stable. ACTIVITY: Ad-mar. DIET: Heart healthy. CODE STATUS: Full. DISPOSITION: Home, 10/20/2019. Job ID: [id number]
--- NOTE | 2019-10-21 14:45 | EEG ---
DATE OF SERVICE: 10/20/2019 ATTENDING PHYSICIAN: Brenda Parmar MD This EEG was performed using 24-channel [employer] video digital EEG machine with 24-disk electrodes. This was an extended 2 hours 5 minutes of inpatient video EEG recording. Digital analysis of the EEG was done for spike and seizure detection, which revealed no abnormalities. BACKGROUND: The posterior background rhythm is 9 to 10 Hz. The background rhythm attenuates with eye opening and enhances with eye closure. HYPERVENTILATION: No significant response seen with hyperventilation. PHOTIC STIMULATION: Bi-occipital symmetric driving responses observed. SLEEP: Drowsiness and sleep are observed. EEG DIAGNOSIS: Normal awake, drowsy, and sleep EEG. Job ID: [id number]
== END 2019-10-20 17:29 | disposition home or self-care (01) ==
LOC: ERS 11:06 → 2SE 15:31
PROVIDERS: ADMIT Family Medicine; ATTEND Family Medicine
DX: R53.1 Weakness (principal); R20.0 Anesthesia of skin; J44.9 Chronic obstructive pulmonary disease, unspecified; R03.0 Elevated blood-pressure reading, without diagnosis of hypertension; F17.210 Nicotine dependence, cigarettes, uncomplicated; F12.10 Cannabis abuse, uncomplicated; F10.10 Alcohol abuse, uncomplicated; K11.9 Disease of salivary gland, unspecified
CPT/HCPCS: 36415; 70450; 70551; 71045; 80053; 80061; 82550; 84484; 85025; 93005; 93306; 93880; 95712; 95819; 95957; G0378

== ENCOUNTER 2020-10-15 22:57 | Emergency (ER) | payer SELFPAY ==
[2020-10-15 23:36] LABS: #Basophils 0.1 thou/uL (0.0-0.2); #Eosinphils 0.4 thou/uL (0.0-0.7); #Lymphocytes 3.6 thou/uL (1.20-3.40); #Monocytes 1.9 thou/uL (0.11-0.59); #Neutrophils 7.7 thou/uL (1.40-6.50); %Basophils 0.7 % (0.0-1.0); %Eosinophils 2.6 % (0.0-10.0); %Lymphocytes 26.4 % (21.0-51.0); %Neutrophils 56.3 % (42.0-75.0); Hemoglobin 15.6 g/dL (14.0-18.0); Mean Corpuscular HGB CONC 33.2 g/dL (32.0-36.0); Mean Corpuscular Hemoglobin 31.2 pg (27.0-31.0); Mean Corpuscular Volume 93.8 fL (78.0-98.0); Mean Platelet Volume 8.4 fL (7.4-10.4); Platelet Count 213 thou/uL (130-400); RBC Distribution Width 13.6 % (11.5-14.5); White Blood Cell (WBC) Count 13.6 thou/uL (4.8-10.8)
[2020-10-15 23:58] LABS: ALT (SGPT) 70 U/L (8-55); AST (SGOT) 57 U/L (5-34); Albumin 3.7 g/dL (3.5-5.0); Alkaline Phosphatase 75 U/L (40-110); Anion Gap 16 mmol/L (10-20); BUN (Urea Nitrogen) 10 mg/dL (8.4-25.7); Bilirubin, Total 0.6 mg/dL (0.2-1.2); Calc. Creatinine Clearance 0 mL/min (70-130); Calcium 9.4 mg/dL (7.8-10.44); Carbon Dioxide 26 mmol/L (22-29); Chloride 95 mmol/L (98-107); Globulin 5.1 g/dL (2.4-3.5); Glucose 107 mg/dL (70-105); Lipase 35 U/L (8-78); Potassium 3.9 mmol/L (3.5-5.1); Protein, Total 8.8 g/dL (6.0-8.3); Sodium 133 mmol/L (136-145)
[2020-10-16] MEDS ORDERED: Aspirin 325 MG TAB ONE (00:39)
[2020-10-16] MEDS ORDERED: Ketorolac Tromethamine 30 MG/ML VIAL ONE ×2 (00:45→00:49)
[2020-10-16] MEDS ORDERED: Iopamidol-370 76% 500 ML 1 ML ONE (09:40)
== END 2020-10-16 05:08 | disposition home or self-care (01) ==
LOC: ERS 22:57
DX: J18.9 Pneumonia, unspecified organism (principal); R07.81 Pleurodynia; J44.9 Chronic obstructive pulmonary disease, unspecified; F17.210 Nicotine dependence, cigarettes, uncomplicated
CPT/HCPCS: 36415; 71045; 71275; 80053; 83690; 84484; 85025; 85379; 93005; 96372; J1885; J7620; Q9967